=== PATIENT | female | born 1975 | race Caucasian/White ===

== ENCOUNTER → 2017-01-06 | Outpatient (CLI) | payer MEDICAID ==
--- NOTE | 2017-01-06 13:07 | MM ---
Reason for exam: screening (asymptomatic). Baseline mammogram. History: Family history of breast cancer in paternal grandmother. Physical Findings: Nurse did not find any significant physical abnormalities on exam. MG Screening Mammo w CAD Bilateral CC and MLO view(s) were taken. There are scattered fibroglandular densities. There is no discrete abnormality. No significant changes when compared with prior studies. ASSESSMENT: Negative, BI-RAD 1 RECOMMENDATION: Routine screening mammogram of both breasts in 1 year.
== END | disposition home or self-care (01) ==
LOC: RADMAMWWP 08:11
PROVIDERS: ATTEND Family Medicine
DX: Z12.31 Encounter for screening mammogram for malignant neoplasm of breast (principal)

== ENCOUNTER 2017-01-12 21:33 | Observation (INO) | payer MEDICAID ==
[2017-01-12] MEDS ORDERED: ASPIRIN 81 MG CHEW PO STA (21:53)
[2017-01-12] MEDS ORDERED: NITROGLYCERIN OINT 1 INCH/GM PACKET TOPICAL STA (21:53)
--- NOTE | 2017-01-12 21:55 | ED ---
General Adult HPI - General Chief complaint: Chest Pain Stated complaint: Chest Pain Time Seen by Provider: 01/12/17 21:35 Source: patient, RN notes reviewed Mode of arrival: ambulatory Limitations: no limitations - History of Present Illness Initial comments: This is a 41-year-old female who presents emergency Department with no significant history except for smoking and she quit 5 years ago. Patient states she does have a family history is positive for heart disease. Patient states she's been having intermittent chest pain which started a couple of months ago and she states beginning progressively worse. Patient states the pain initially was only lasting about 30 minutes and now it's lasting an hour to 2 hours. Patient states she's also short of breath the pain radiates to her back she has not experienced any diaphoresis and she's not had any nausea. Patient denies any abdominal pain patient denies any vomiting or diarrhea. Patient denies any recent fever chills or cough. Patient denies any Pain. Patient denies any leg swelling. Patient denies headache patient denies numbness weakness. Patient denies lightheadedness dizziness or syncopal episode. - Related Data Home Medications Medication Instructions Recorded Confirmed HYDROcodone/APAP 7.5-325MG [[place] 1 tab PO Q8H PRN 01/12/17 01/12/17 7.5-325] Allergies Allergy/AdvReac Type Severity Reaction Status Date / Time No Known Allergies Allergy Verified 01/12/17 21:56 Review of Systems ROS Statement: Those systems with pertinent positive or pertinent negative responses have been documented in the HPI. ROS Other: All systems not noted in ROS Statement are negative. Past Medical History Past Medical History: Asthma History of Any Multi-Drug Resistant Organisms: MRSA Date of last positivie culture/infection: breast MDRO Source:: 2010 Additional Past Surgical History / Comment(s): kidney stone removed Past Psychological History: Anxiety, Bipolar, Depression Smoking Status: Former smoker Past Alcohol Use History: None Reported Past Drug Use History: None Reported General Exam - General Exam Comments Initial Comments: GENERAL: Patient is well-developed and well-nourished. Patient is nontoxic and well- hydrated and is in mild distress. ENT: Neck is soft and supple. No significant lymphadenopathy is noted. Oropharynx is clear. Moist mucous membranes. Neck has full range of motion without eliciting any pain. EYES: The sclera were anicteric and conjunctiva were pink and moist. Extraocular movements were intact and pupils were equal round and reactive to light. Eyelids were unremarkable. PULMONARY: Unlabored respirations. Good breath sounds bilaterally. No audible rales rhonchi or wheezing was noted. CARDIOVASCULAR: There is a regular rate and rhythm without any murmurs gallops or rubs. ABDOMEN: Soft and nontender with normal bowel sounds. No palpable organomegaly was noted. There is no palpable pulsatile mass. SKIN: Skin is clear with no lesions or rashes and otherwise unremarkable. NEUROLOGIC: Patient is alert and oriented x3. Cranial nerves II through XII are grossly intact. Motor and sensory are also intact. Normal speech, volume and content. Symmetrical smile. MUSCULOSKELETAL: Normal extremities with adequate strength and full range of motion. No lower extremity swelling or edema. No calf tenderness. LYMPHATICS: No significant lymphadenopathy is noted PSYCHIATRIC: Normal psychiatric evaluation. Normal interpersonal interactions appears functionally intact in deals appropriately with others. No signs of depression. No signs of anxiety. Limitations: no limitations Course Vital Signs 01/12/17 01/12/17 01/12/17 21:35 22:08 22:41 Temperature 97.9 F Pulse Rate 92 79 95 Respiratory 18 18 18 Rate Blood Pressure 150/78 145/66 118/57 O2 Sat by Pulse 100 100 97 Oximetry Medical Decision Making - Medical Decision Making EKG shows a normal sinus rhythm at 83 bpm PA interval is on a 52 QRS is 88 QT interval 364 QTC is 427 per patient's EKG shows no ST segment elevation or depression no T-wave abnormalities are seen. I compared this EKG to an old EKG I see no significant changes Patient's chest x-ray shows no acute abnormality. Because of the patient's progressively worsening symptoms are starting the patient on heparin I wrote admitting orders and consult cardiology. - Lab Data Result diagrams: 01/12/17 22:08 01/12/17 22:08 Lab Results 01/12/17 01/12/17 01/12/17 Range/Units 22:08 22:08 22:08 WBC 8.5 (3.8-10.6) k/uL RBC 4.42 (3.80-5.40) m/uL Hgb 12.4 (11.4-16.0) gm/dL Hct 37.1 (34.0-46.0) % MCV 84.0 (80.0-100.0) fL MCH 28.1 (25.0-35.0) pg MCHC 33.5 (31.0-37.0) g/dL RDW 14.6 (11.5-15.5) % Plt Count 238 (150-450) k/uL Neutrophils % 61 % Lymphocytes % 27 % Monocytes % 6 % Eosinophils % 4 % Basophils % 0 % Neutrophils # 5.1 (1.3-7.7) k/uL Lymphocytes # 2.3 (1.0-4.8) k/uL Monocytes # 0.5 (0-1.0) k/uL Eosinophils # 0.3 (0-0.7) k/uL Basophils # 0.0 (0-0.2) k/uL PT (9.0-12.0) sec INR (<1.1) APTT (22.0-30.0) sec Sodium 137 (137-145) mmol/L Potassium 3.9 (3.5-5.1) mmol/L Chloride 103 (98-107) mmol/L Carbon Dioxide 26 (22-30) mmol/L Anion Gap 8 mmol/L BUN 9 (7-17) mg/dL Creatinine 0.58 (0.52-1.04) mg/dL Est GFR (MDRD) Af Amer >60 (>60 ml/min/1.73 sqM) Est GFR (MDRD) Non-Af >60 (>60 ml/min/1.73 sqM) Glucose 97 (74-99) mg/dL Calcium 9.0 (8.4-10.2) mg/dL Magnesium 2.1 (1.6-2.3) mg/dL Total Bilirubin 0.5 (0.2-1.3) mg/dL AST 25 (14-36) U/L ALT 46 (9-52) U/L Alkaline Phosphatase 82 (38-126) U/L Total Creatine Kinase 90 (30-135) U/L CK-MB (CK-2) 1.2 (0.0-2.4) ng/mL CK-MB (CK-2) Rel Index 1.3 Troponin I <0.012 (0.000-0.034) ng/mL Total Protein 6.9 (6.3-8.2) g/dL Albumin 3.9 (3.5-5.0) g/dL 01/12/17 Range/Units 22:08 WBC (3.8-10.6) k/uL RBC (3.80-5.40) m/uL Hgb (11.4-16.0) gm/dL Hct (34.0-46.0) % MCV (80.0-100.0) fL MCH (25.0-35.0) pg MCHC (31.0-37.0) g/dL RDW (11.5-15.5) % Plt Count (150-450) k/uL Neutrophils % % Lymphocytes % % Monocytes % % Eosinophils % % Basophils % % Neutrophils # (1.3-7.7) k/uL Lymphocytes # (1.0-4.8) k/uL Monocytes # (0-1.0) k/uL Eosinophils # (0-0.7) k/uL Basophils # (0-0.2) k/uL PT 10.2 (9.0-12.0) sec INR 1.0 (<1.1) APTT 25.6 (22.0-30.0) sec Sodium (137-145) mmol/L Potassium (3.5-5.1) mmol/L Chloride (98-107) mmol/L Carbon Dioxide (22-30) mmol/L Anion Gap mmol/L BUN (7-17) mg/dL Creatinine (0.52-1.04) mg/dL Est GFR (MDRD) Af Amer (>60 ml/min/1.73 sqM) Est GFR (MDRD) Non-Af (>60 ml/min/1.73 sqM) Glucose (74-99) mg/dL Calcium (8.4-10.2) mg/dL Magnesium (1.6-2.3) mg/dL Total Bilirubin (0.2-1.3) mg/dL AST (14-36) U/L ALT (9-52) U/L Alkaline Phosphatase (38-126) U/L Total Creatine Kinase (30-135) U/L CK-MB (CK-2) (0.0-2.4) ng/mL CK-MB (CK-2) Rel Index Troponin I (0.000-0.034) ng/mL Total Protein (6.3-8.2) g/dL Albumin (3.5-5.0) g/dL Disposition Clinical Impression: Unstable angina pectoris Disposition: ADMITTED IP TO THIS HOSP Time of Disposition: 23:23
[2017-01-12 22:25] LABS: ALT 46 U/L (9-52); AST 25 U/L (14-36); Alkaline Phosphatase 82 U/L (38-126); Anion Gap 8 mmol/L; Blood Urea Nitrogen 9 mg/dL (7-17); Carbon Dioxide 26 mmol/L (22-30); Chloride 103 mmol/L (98-107); Glucose 97 mg/dL (74-99); Magnesium 2.1 mg/dL (1.6-2.3); Non-African American GFR(MDRD) >60 (>60 ml/min/1.73 sqM); Potassium 3.9 mmol/L (3.5-5.1); Sodium 137 mmol/L (137-145); Total Bilirubin 0.5 mg/dL (0.2-1.3); Total Protein 6.9 g/dL (6.3-8.2)
[2017-01-12 22:28] LABS: Partial Thromboplastin Time 25.6 sec (22.0-30.0); Prothrombin Time 10.2 sec (9.0-12.0)
[2017-01-12 22:39] LABS: Creatine Kinase 90 U/L (30-135)
--- NOTE | 2017-01-12 22:39 | XR ---
EXAMINATION TYPE: XR chest 2V DATE OF EXAM: 01/12/2017 10:22 PM COMPARISON: 08/28/2015 HISTORY: Chest pain TECHNIQUE: Frontal and lateral views of the chest are obtained. FINDINGS: Heart and mediastinum are normal. Lungs are clear. Diaphragm is normal. Bony thorax is int act. IMPRESSION: Normal chest. No change.
[2017-01-12 22:53] LABS: Creatine Kinase MB 1.2 ng/mL (0.0-2.4); Troponin I <0.012 ng/mL (0.000-0.034)
[2017-01-12 23:02] LABS: Basophils % (A) 0 %; CHCM 34.7; Eosinophils # (A) 0.3 k/uL (0-0.7); Eosinophils % (A) 4 %; HCT 37.1 % (34.0-46.0); HDW 3.26; HGB 12.4 gm/dL (11.4-16.0); Luc # (Auto) 0.25; Luc % (Auto) 3; Lymphocytes # (A) 2.3 k/uL (1.0-4.8); Lymphocytes % (A) 27 %; MCH 28.1 pg (25.0-35.0); MCHC 33.5 g/dL (31.0-37.0); Mean Platelet Volume 6.3; Monocytes # (A) 0.5 k/uL (0-1.0); Monocytes % (A) 6 %; Neutrophils # (A) 5.1 k/uL (1.3-7.7); Neutrophils % (A) 61 %; RBC 4.42 m/uL (3.80-5.40); RDW 14.6 % (11.5-15.5); WBC 8.5 k/uL (3.8-10.6); WBC (Perox) 8.22
[2017-01-13 00:12] VITALS: BMI 42.9
[2017-01-13 03:53] LABS: Cholesterol 159 mg/dL (<200); HDL Cholesterol 38 mg/dL (40-60); Triglycerides 222 mg/dL (<150)
[2017-01-13 04:03] LABS: Creatine Kinase 62 U/L (30-135)
[2017-01-13 04:15] LABS: Creatine Kinase MB 0.8 ng/mL (0.0-2.4); Troponin I <0.012 ng/mL (0.000-0.034)
[2017-01-13] MEDS: NITROGLYCERIN OINT 1 INCH/GM PACKET TOPICAL SCH ×3 (05:54→13:00)
[2017-01-13] MEDS: NITROGLYCERIN SL TABS 0.4 MG TAB SUBLINGUAL PRN ×3 (07:10→07:22)
[2017-01-13] MEDS ORDERED: HYDROcodone/APAP 7.5-325MG 1 EACH TAB PO PRN (07:50)
--- NOTE | 2017-01-13 08:21 | P.CRDCN ---
History of Present Illness Consult date: 01/13/17 Reason for Consult (text): Chest pain Chief complaint: Chest pain History of present illness: Is a pleasant 41-year-old female with a known history of asthma. She is an ex-smoker, quit 5 years ago. She denies history of hypertension, hyperlipidemia or diabetes. Family history significant for multiple MIs and her mother during her late 50s. She presented to the emergency department with complaints of chest pain, mid to right sided that radiates to her back. Associated symptoms included shortness of breath. She says these episodes started about a month ago and are becoming more frequent. Originally began at rest and worsened with activity. The pain increases with inspiration as well as palpation. She's had no dizziness, lightheadedness, syncope, nausea or vomiting. She denies complaints of palpitations or edema. Has no orthopnea or PND. EKG on admission showed normal sinus rhythm without any acute ST-T wave changes. Laboratory values showed troponin less than 0.0122. BUN and creatinine are normal. Triglycerides 222 and HDL of 38. Patient continues to have intermittent chest discomfort, not relieved by nitro. EKG continues to show no ST-T wave changes. Past Medical History Past Medical History: Asthma History of Any Multi-Drug Resistant Organisms: MRSA Date of last positivie culture/infection: breast MDRO Source:: 2009 Additional Past Surgical History / Comment(s): kidney stone removed Past Psychological History: Anxiety, Bipolar, Depression Smoking Status: Former smoker Past Alcohol Use History: None Reported Past Drug Use History: None Reported - Past Family History Mother Family Medical History: Diabetes Mellitus, Myocardial Infarction ([place]) Additional Family Medical History / Comment(s): [place] x 4 Medications and Allergies Home Medications Medication Instructions Recorded Confirmed Type HYDROcodone/APAP 7.5-325MG [[place] 1 tab PO Q8H PRN 01/12/17 01/12/17 History 7.5-325] Allergies Allergy/AdvReac Type Severity Reaction Status Date / Time No Known Allergies Allergy Verified 01/12/17 21:56 Physical Exam Vitals: Vital Signs Temp Pulse Resp BP BP Pulse Ox 01/13/17 07:40 97.6 F 97 18 126/63 95 01/13/17 04:00 97.6 F 86 16 110/50 95 01/12/17 23:40 97.7 F 89 16 130/69 95 Intake and Output 01/12/17 01/13/17 01/13/17 22:59 06:59 14:59 Intake Total 10 Balance 10 Intake: IV 10 0.9% NS FLUSH 10 mL 10 Other: Weight 113.4 kg PHYSICAL EXAMINATION: HEENT: Head is atraumatic, normocephalic. Pupils equal, round. Neck is supple. There is no elevated jugular venous pressure. HEART EXAMINATION: Heart sounds regular, S1 and S2 normal. No murmur or gallop heard. CHEST EXAMINATION: Lungs are clear to auscultation and precussion. No chest wall tenderness is noted on palpation or with deep breathing. ABDOMEN: Soft, obese, nontender. Bowel sounds are heard. No organomegaly noted. EXTREMITIES: 2+ peripheral pulses with no evidence of peripheral edema and no calf tenderness noted. NEUROLOGIC patient is awake, alert and oriented x3. . Results 01/12/17 22:08 01/12/17 22:08 Cardiac Enzymes 01/13/17 Range/Units 03:13 CK-MB (CK-2) 0.8 (0.0-2.4) ng/mL Troponin I <0.012 (0.000-0.034) ng/mL Lipids 01/13/17 Range/Units 03:13 Triglycerides 222 H (<150) mg/dL Cholesterol 159 (<200) mg/dL HDL Cholesterol 38 L (40-60) mg/dL Current Medications Generic Name Dose Route Start Last Admin Trade Name Freq PRN Reason Stop Dose Admin Hydrocodone Bitart/Acetaminophen 1 each 01/13/17 07:50 [place] 7.5-325 PO Q8H PRN Pain Aspirin 325 mg 01/13/17 09:00 Aspirin PO DAILY ANI Nitroglycerin 1 inch 01/13/17 06:00 Nitro-Bid Oint TOPICAL Q6HR ANI Nitroglycerin 0.4 mg 01/12/17 23:24 01/13/17 07:22 Nitrostat SUBLINGUAL 0.4 mg Q5M PRN Administration Chest Pain Intake and Output 01/12/17 01/13/17 01/13/17 22:59 06:59 14:59 Intake Total 10 Balance 10 Intake: IV 10 0.9% NS FLUSH 10 mL 10 Other: Weight 113.4 kg EKG Interpretations (text) Normal sinus rhythm without acute ST-T wave changes Assessment and Plan Plan: Assessment and plan #1 chest pain, atypical #2 obesity #3 asthma #4 ex-smoker From cardiology perspective, we will obtain 2-D echo. We will await the third troponin level. We will order a dobutamine stress echo.. Further recommendations to follow. AUTHOR AGENT note has been reviewed, I agree with a documented findings and plan of care. Patient was seen and examined.
[2017-01-13] MEDS ORDERED: ASPIRIN 325 MG TAB PO SCH (09:00)
--- NOTE | 2017-01-13 09:32 | ECHOF ---
Referral Reason:chest pain MEASUREMENTS -------- HEIGHT: 162.6 cm WEIGHT: 113.4 kg BP: 126/63 RVIDd: 3.3 cm (< 3.3) IVSd: 1.1 cm (0.6 - 1.1) LVIDd: 3.9 cm (3.9 - 5.3) LVPWd: 1.2 cm (0.6 - 1.1) IVSs: 1.9 cm LVIDs: 2.6 cm LVPWs: 1.8 cm LA Diam: 3.4 cm (2.7 - 3.8) LAESV Index (A-L): 23.36 ml/m Ao Diam: 2.7 cm (2.0 - 3.7) AV Cusp: 1.7 cm (1.5 - 2.6) LA Diam: 3.4 cm (2.7 - 3.8) MV EXCURSION: 19.783 mm (> 18.000) MV EF SLOPE: 121 mm/s (70 - 150) EPSS: 0.2 cm MV E Marcus: 1.03 m/s MV DecT: 143 ms MV A Marcus: 0.72 m/s MV E/A Ratio: 1.44 RAP: 5.00 mmHg RVSP: 24.48 mmHg FINDINGS -------- Sinus rhythm. This was a technically adequate study. There is borderline concentric left ventricular hypertrophy. Overall left ventricular systolic function is low-normal with, an EF between 50 - 55 %. Basal inferoseptal LV wall motion is hypokinetic. The right ventricle is mildly enlarged. Normal LA size by volume 22+/-6 ml/m2. The right atrium is normal in size. 1.5mg of Definity was utilized for enhancement of images The aortic valve is trileaflet and appears structurally normal. Mild mitral annular calcification present. There is trace mitral regurgitation. Trace tricuspid regurgitation present. Right ventricular systolic pressure is normal at < 35 mmHg. Trace/mild (physiologic) pulmonic regurgitation. The aortic root size is normal. IVC Not well visulized. There is no pericardial effusion. CONCLUSIONS -------- 1. Sinus rhythm. 2. The aortic valve is trileaflet and appears structurally normal. 3. Mild mitral annular calcification present. 4. There is trace mitral regurgitation. 5. Trace tricuspid regurgitation present. 6. Right ventricular systolic pressure is normal at < 35 mmHg. 7. Trace/mild (physiologic) pulmonic regurgitation. 8. The aortic root size is normal. 9. IVC Not well visulized. 10. There is no pericardial effusion. 11. This was a technically adequate study. 12. There is borderline concentric left ventricular hypertrophy. 13. Overall left ventricular systolic function is low-normal with, an EF between 50 - 55 %. 14. Basal inferoseptal LV wall motion is hypokinetic. 15. The right ventricle is mildly enlarged. 16. Normal LA size by volume 22+/-6 ml/m2. 17. The right atrium is normal in size. 18. 1.5mg of Definity was utilized for enhancement of images TRAUMA PROGRAM MANAGER: Glenn Durham RDCS
[2017-01-13] MEDS ORDERED: DOBUTamine DRIP for NUC MED 500 MG in DEXTROSE/WATER 1 250ML.BAG IV ONE (09:44)
[2017-01-13 10:21] LABS: Creatine Kinase 57 U/L (30-135)
[2017-01-13 10:33] LABS: Creatine Kinase MB 0.7 ng/mL (0.0-2.4); Troponin I <0.012 ng/mL (0.000-0.034)
[2017-01-13 11:40] VITALS: BP 120/68; PULSE 95; RESP 18; TEMP 98
--- NOTE | 2017-01-13 11:41 | ECHOS ---
DATE OF SERVICE: 01/13/2017 AGE: 41Y SEX: F HT: 64 WT: 250 lbs. Protocol Rei: Others: Dobutamine Stress Echo Stage: Dur. of Exercise: *Heart Rate Blood Pressure *Rest: 56 Rest: 121/70 * *Max. Achieved: 153 Maximum BP: 199/54 85% PMHR: 151 100% PMHR: 178 *METS: INDICATIONS: Chest pain. MEDICATIONS: Baseline EKG shows sinus rhythm, normal axis, normal intervals. Patient was given intravenous dobutamine over a period of 8 minutes as per protocol. Did not have chest pain or diagnostic ST segment depression. Patient attained 86% of predicted maximum heart rate. Baseline echo shows normal left ventricular size, wall motion and systolic function. Post dobutamine infusion, there is normal hyperdynamic response of all segments of myocardium noted. CONCLUSION: 1. Negative stress test by EKG criteria. 2. Negative dobutamine echo.
--- NOTE | 2017-01-13 19:31 | HP ---
DATE OF ADMISSION: 01/12/2017 PRESENTING COMPLAINT: Chest pain. HISTORY OF PRESENTING COMPLAINT: This is a pleasant 41-year-old patient of Dr. Martin whose chronic stable conditions include asthma and bipolar disorder. The patient for a month was about right-sided chest fracture. Not really related to exertion, can be at rest. No radiation into ( ) sometimes shortness of breath, no dizziness, no lightheadedness, no perspiration. Decided to come in for the same to rule out cardiac cause. Patient has no prior cardiac history. REVIEW OF SYSTEMS: CONSTITUTIONAL: None. HEENT: None. RESPIRATORY: As above. CARDIOVASCULAR: Left precordial pain. GASTROINTESTINAL: None. GENITOURINARY: None. MUSCULOSKELETAL: None. Dermatological: None. HEMATOLOGICAL: None. LYMPHATIC: None. PSYCHIATRY: None. NEUROLOGICAL: None. Past medical history of asthma and bipolar disorder. PAST SURGICAL HISTORY: Kidney stone removal. SOCIAL HISTORY: The patient lives with a girlfriend. The patient smoked about 17 years; stopped in 2010. No alcohol. Works as an aide at [employer]. FAMILY HISTORY: Family history of myocardial infarction, diabetes. HOME MEDICATIONS: [place] 7.5 1 tablets q.8 p.r.n. ALLERGIES: None. On examination temperature 98, pulse ox 95, respiratory rate 18, blood pressure 120/68, pulse ox 97% on room air. GENERAL APPEARANCE: Well built, BMI of 42.9, lying in bed, not in distress. EYES: Pupils equal, conjunctivae normal. HEENT: External appearance of nose and ears normal. Oral cavity normal. NECK: JVD not raised. Mass not palpable. RESPIRATORY: Effort normal. LUNGS: Fair air entry. CARDIOVASCULAR: First and second sounds normal. No edema. ABDOMEN: Soft, nontender. Liver and spleen not palpable. LYMPHATIC: No lymph nodes palpable in the neck or axillae. PSYCHIATRY: Alert and oriented x3. Mood is normal. NEUROLOGICAL: Pupils equal. Cranial nerves grossly intact. Power and sensation grossly intact. MUSCULOSKELETAL: Reproducible pain at the right costochondral junction. INVESTIGATIONS: White count 8.5, hemoglobin 12.4. Potassium 3.9 and LDL is 77. EKG normal sinus rhythm. ASSESSMENT: 1. Right-sided chest pain, likely acute costochondritis rule out a cardiac cause, given a positive family history. 2. Mild intermittent asthma, stable. 3. Bipolar disorder, takes Cymbalta at home. 4. Morbid obesity body mass index 42.9. PLAN: Cardiology was consulted who ordered a stress test. Patient was put on aspirin. The patient should see a dietitian to lose weight. If stress test negative, we will start the patient on naproxen.
--- NOTE | 2017-01-14 19:47 | DS ---
DATE OF ADMISSION: 01/12/2017 DATE OF DISCHARGE: 01/13/2017 FINAL DIAGNOSES: 1. Chest pain, likely acute costochondritis. 2. Mild intermittent asthma, stable. 3. Bipolar disorder, stable. 4. Morbid obesity, BMI 42.9. HOSPITAL COURSE: This patient with morbid obesity presented with right-sided chest pain, reproducible at the costochondral junction. Considerable a cardiac cause. Dobutamine stress echocardiogram was ordered that came back to negative. Discharge planning was discussed in detail with the patient and patient's partner. On examination, right chest wall reproducible pain. DISCHARGE MEDICATIONS: 1. Jbph[place] 7.5 1 tablets q.8 p.r.n. 2. Naproxen 250 mg p.o. b.i.d. Follow up with Dr. Martin in one week, follow-up with Dr. Porter Garcia in 2 weeks. CONSULTATION: Dr. Oviedo from cardiology.
== END 2017-01-13 16:55 | disposition home or self-care (01) ==
LOC: EC 21:33 → 6SEL 23:22
PROVIDERS: ADMIT Hospitalist; ATTEND Hospitalist
DX: R07.89 Other chest pain (principal); J45.20 Mild intermittent asthma, uncomplicated; F31.9 Bipolar disorder, unspecified; E66.01 Morbid (severe) obesity due to excess calories; Z68.41 Body mass index [BMI] 40.0-44.9, adult; Z87.891 Personal history of nicotine dependence; Z82.49 Family history of ischemic heart disease and other diseases of the circulatory system
CPT/HCPCS: 36415; 93005; 93350; 93017; 93306; 85379; 80061; 80053; 82550 ×2; 82553 ×2; 83735; 84484 ×2; 85025; 85610; 85730; 71020; 99285; G0378 ×2; J1250; Q9957

== ENCOUNTER 2017-02-19 14:10 | Emergency (ER) | payer MEDICAID ==
[2017-02-19] MEDS ORDERED: IBUPROFEN 600 MG TAB PO STA (14:44)
[2017-02-19] MEDS ORDERED: ACETAMINOPHEN TAB 500 MG TAB PO STA (14:44)
--- NOTE | 2017-02-19 14:45 | ED ---
Lower Extremity Injury HPI - General Chief Complaint: Extremity Injury, Lower Stated Complaint: rt knee and leg pain Time Seen by Provider: 02/19/17 14:39 Source: patient, RN notes reviewed Mode of arrival: ambulatory Limitations: no limitations - History of Present Illness Initial Comments: 41-year-old female presents emergency Department chief complaint right leg and swelling. Patient states started a few days ago. She said increased swelling, right calf pain. She states all started when she stood up from a seated position felt a pop in her knee, leg region. She states that she is concerned about possible clot to swelling. She denies any chest pain or shortness breath. Denies any history of DVT. Patient states she is minimal discomfort to her knee and she had no traumatic injury no fall. Patient denies any paresthesias. Patient offers no other complaints. - Related Data Home Medications Medication Instructions Recorded Confirmed HYDROcodone/APAP 7.5-325MG [[place] 1 tab PO Q8H PRN 01/12/17 02/19/17 7.5-325] Acetaminophen Tab [Tylenol Tab] 650 mg PO Q6H PRN 02/19/17 02/19/17 Ibuprofen [Motrin] 600 - 800 mg PO Q6H PRN 02/19/17 02/19/17 Previous Rx's Medication Instructions Recorded Hydrocodone/Acetaminophen [[place] 1 tab PO Q6HR PRN #15 tab 02/19/17 5-325] Allergies Allergy/AdvReac Type Severity Reaction Status Date / Time No Known Allergies Allergy Verified 02/19/17 14:47 Review of Systems ROS Statement: Those systems with pertinent positive or pertinent negative responses have been documented in the HPI. ROS Other: All systems not noted in ROS Statement are negative. Past Medical History Past Medical History: Asthma History of Any Multi-Drug Resistant Organisms: MRSA Date of last positivie culture/infection: breast MDRO Source:: 2009 Additional Past Surgical History / Comment(s): kidney stone removed Past Psychological History: Anxiety, Bipolar, Depression Smoking Status: Former smoker Past Alcohol Use History: None Reported Past Drug Use History: None Reported - Past Family History Mother Family Medical History: Diabetes Mellitus, Myocardial Infarction ([place]) Additional Family Medical History / Comment(s): [place] x 4 General Exam Limitations: no limitations General appearance: alert, in no apparent distress Respiratory exam: Present: normal lung sounds bilaterally. Absent: respiratory distress, wheezes, rales, rhonchi, stridor Cardiovascular Exam: Present: regular rate, normal rhythm, normal heart sounds. Absent: systolic murmur, diastolic murmur, rubs, gallop, clicks Extremities exam: Present: other (Right labia sinus the right calf, there is moderate edema noted neurovascular intact there is some redness to the skin over the swelling region, patient has full range of motion right knee right ankle neurovascular intact of her right leg) Course Vital Signs 02/19/17 14:20 Temperature 98.2 F Pulse Rate 91 Respiratory 18 Rate Blood Pressure 134/76 O2 Sat by Pulse 96 Oximetry Medical Decision Making - Medical Decision Making 41-year-old male presented for right leg pain, swelling. Patient has a right knee sprain, lower extremity swelling. There is no evidence DVT. Patient has "collections consistent with joint effusion. Patient will be follow-up with orthopedics. Patient be discharged with pain medication return parameters were discussed. We discussed compression stockings, elevating and icing. Disposition Clinical Impression: Leg edema, right, Right knee sprain Disposition: HOME SELF-CARE Condition: Stable Instructions: Knee Sprain (ED) Additional Instructions: Please rest, ice and elevate. Take medications as prescribed. Follow-up with orthopedics as directed.Please return to the Emergency Department if symptoms worsen or any other concerns. Prescriptions: Hydrocodone/Acetaminophen [[place] 5-325] 1 tab PO Q6HR PRN #15 tab PRN Reason: Pain Referrals: Demetrio Martin MD [Primary Care Provider] - 1-2 days Francisco Silva MD [STAFF PHYSICIAN] - 1-2 days Time of Disposition: 16:23
--- NOTE | 2017-02-19 15:30 | US ---
EXAMINATION TYPE: US venous doppler duplex LE RT DATE OF EXAM: 02/19/2017 3:14 PM COMPARISON: NONE CLINICAL HISTORY: Pain. EC patient with right knee/calf pain and swelling x 1 week. Patient states aw akened from sleep with symptoms. SIDE PERFORMED: Right TECHNIQUE: The lower extremity deep venous system is examined utilizing real time linear array sonog anne with graded compression, Doppler sonography and color-flow sonography. VESSELS IMAGED: Common Femoral Vein Deep Femoral Vein Greater Saphenous Vein * Femoral Vein Popliteal Vein Small Saphenous Vein * Proximal Calf Veins (* superficial vessels) Right Leg: Negative for DVT. Fluid areas are noted at superior/ anterior right knee = 3.7x 0.7 x 0.4 cm and at medial/inferior right knee = 2.5 x 1.9 x 0.6cm. IMPRESSION: No evidence of deep venous thrombosis. Knee joint effusion is noted.
--- NOTE | 2017-02-19 16:19 | XR ---
EXAMINATION TYPE: XR knee complete RT DATE OF EXAM: 02/19/2017 3:58 PM COMPARISON: NONE HISTORY: Knee pain TECHNIQUE: 3 views FINDINGS: I see no fracture nor dislocation. Joint spaces are normal. There is no sign of knee joint effusion. IMPRESSION: Negative right knee exam.
[2017-02-19 17:00] VITALS: BP 131/58; PULSE 68; RESP 20; TEMP 98.3
== END 2017-02-19 16:40 | disposition home or self-care (01) ==
LOC: EC 14:10
DX: S83.91XA Sprain of unspecified site of right knee, initial encounter (principal); R60.9 Edema, unspecified; Z87.891 Personal history of nicotine dependence; X50.9XXA Other and unspecified overexertion or strenuous movements or postures, initial encounter
CPT/HCPCS: 99284

== ENCOUNTER → 2017-03-01 | Outpatient (CLI) | payer MEDICAID ==
--- NOTE | 2017-03-02 07:45 | MR ---
EXAMINATION TYPE: MR knee RT wo con DATE OF EXAM: 03/01/2017 10:33 PM COMPARISON: Right knee x-ray February 19, 2017 HISTORY: Rt knee pain, effusion, and medial meniscal tear per order. Pain and swelling for couple wee ks per patient. TECHNIQUE: Multiplanar, multisequence images of the knee is performed without IV contrast. FINDINGS: MEDIAL MENISCUS: Anterior horn is intact without tear. Oblique increased signal posterior horn of med ial meniscus appears to extends to inferior articular surface on sagittal image 7. Prominent adjacent cystic change is seen on coronal images causing medial bulging of medial collateral ligament LATERAL MENISCUS: Anterior and posterior horns are intact without tear. CRUCIATE LIGAMENTS: The anterior and posterior cruciate ligaments are intact and unremarkable. COLLATERAL LIGAMENTS: The medial collateral ligament and lateral collateral ligament complex are inta ct. Cystic change is present at level of medial collateral ligament deep aspect. Moderate surrounding fluid is seen particularly inferiorly EXTENSOR MECHANISM: Visualized quadriceps and patellar tendons are intact. EFFUSION: There is small suprapatellar joint effusion. POPLITEAL CYST: No popliteal/lozoya cyst. TRICOMPARTMENT SPACES: There is no significant joint space loss and spurring. CARTILAGE: Tricompartment articular cartilage is maintained. No significant compromise patella is pre sent. BONE MARROW SIGNAL: Heterogeneity of bone marrow signal intensity consistent with red marrow reconver kunal is seen. OTHER: Increased fluid signal in the infrapatellar subcutaneous tissue is present. IMPRESSION: 1. Full-thickness oblique tear posterior horn of medial meniscus with adjacent parameniscal cyst form ation. 2. Mild MCL sprain injury.
== END ==
LOC: RADMRIMAIN 21:35
PROVIDERS: ATTEND Orthopaedic Surgery Sports Medicine
DX: S83.241A Other tear of medial meniscus, current injury, right knee, initial encounter (principal); S83.411A Sprain of medial collateral ligament of right knee, initial encounter

== ENCOUNTER → 2018-04-09 | Outpatient (CLI) | payer MEDICAID ==
--- NOTE | 2018-04-10 13:12 | MM ---
Reason for exam: screening (asymptomatic). Last mammogram was performed 1 year and 3 months ago. History: Family history of breast cancer in paternal grandmother. Physical Findings: A clinical breast exam by your physician is recommended on an annual basis and results should be correlated with mammographic findings. MG Screening Mammo w CAD Bilateral CC and MLO view(s) were taken. Prior study comparison: January 06, 2017, bilateral MG screening mammo w CAD. There are scattered fibroglandular densities. No significant changes when compared with prior studies. ASSESSMENT: Negative, BI-RAD 1 RECOMMENDATION: Routine screening mammogram of both breasts in 1 year.
== END | disposition home or self-care (01) ==
LOC: RADMAMWWP 10:12
PROVIDERS: ATTEND Family Medicine
DX: Z12.31 Encounter for screening mammogram for malignant neoplasm of breast (principal)
CPT/HCPCS: 77067

== ENCOUNTER 2018-11-03 15:33 | Emergency (ER) | payer MEDICAID, OTHER ==
[2018-11-03 15:41] VITALS: BP 132/81; PULSE 96; RESP 20; TEMP 98.3
[2018-11-03] MEDS ORDERED: KETOROLAC 60 MG/2 ML VIAL IM STA (16:23)
[2018-11-03] MEDS ORDERED: SODIUM CHLORIDE 0.9% 1,000 ML IV STA (16:27)
[2018-11-03 16:56] LABS: Basophils % (A) 0 %; Eosinophils # (A) 0.3 k/uL (0-0.7); Eosinophils % (A) 3 %; HCT 39.9 % (34.0-46.0); HGB 13.3 gm/dL (11.4-16.0); Lymphocytes # (A) 1.8 k/uL (1.0-4.8); Lymphocytes % (A) 22 %; MCH 27.6 pg (25.0-35.0); MCHC 33.5 g/dL (31.0-37.0); MCV 82.4 fL (80.0-100.0); Mean Platelet Volume 6.4; Monocytes # (A) 0.5 k/uL (0-1.0); Monocytes % (A) 6 %; Neutrophils # (A) 5.6 k/uL (1.3-7.7); Neutrophils % (A) 68 %; Platelet Count 233 k/uL (150-450); RBC 4.84 m/uL (3.80-5.40); RDW 14.3 % (11.5-15.5); WBC 8.3 k/uL (3.8-10.6)
[2018-11-03 16:59] LABS: Appearance,Urine Cloudy (Clear); Bacteria,Urine Few /hpf; Bilirubin,Urine Negative (Negative); Blood,Urine Negative (Negative); Color,Urine Yellow; Glucose,Urine (UA) Negative (Negative); Ketones,Urine Negative (Negative); Leukocyte Esterase,Urine Negative (Negative); Mucus,Urine Occasional /hpf; Nitrite,Urine Negative (Negative); Protein,Urine Negative (Negative); Specific Gravity,Urine 1.024 (1.001-1.035); Squamous Epithelial Cell,Urine 4 /hpf (0-4); Urobilinogen,Urine <2.0 mg/dL (<2.0)
[2018-11-03 17:07] LABS: ALT 26 U/L (9-52); AST 19 U/L (14-36); Albumin 4.2 g/dL (3.5-5.0); Alkaline Phosphatase 91 U/L (38-126); Anion Gap 8 mmol/L; Blood Urea Nitrogen 10 mg/dL (7-17); Calcium 9.3 mg/dL (8.4-10.2); Carbon Dioxide 26 mmol/L (22-30); Chloride 108 mmol/L (98-107); Glucose 111 mg/dL (74-99); Sodium 142 mmol/L (137-145); Total Bilirubin 0.3 mg/dL (0.2-1.3); Total Protein 7.4 g/dL (6.3-8.2)
--- NOTE | 2018-11-03 17:29 | ED ---
Abdominal Pain HPI - General Chief Complaint: Abdominal Pain Stated Complaint: Abd pain Source: patient, RN notes reviewed, old records reviewed Mode of arrival: ambulatory Limitations: no limitations - History of Present Illness Initial Comments: 43-year-old female patient past medical history of kidney stone presents to ED with epigastric abdominal pain. 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 Patient states that since then she has had mild to moderate pain in her periumbilical and epigastric region. Patient presented to ED directly after injury. Patient describes the pain as a stabbing pain. Patient not taking anything for these symptoms. Patient denies any other associated symptoms including nausea vomiting diarrhea, fever chills, chest pain, shortness of breath, dysuria. Patient denies any other injury sustained. Patient denies back pain, patient is ambulatory without difficulty. Pt states that she cannot be because her partner is a woman. Systemic: Pt denies fatigue, myalgia, fever/chills, rash. Pt denies weakness, night sweats, weight loss. Neuro: Pt denies headache, visual disturbances, syncope or pre-syncope. HEENT: Pt denies ocular discharge or irritation, otalgia, rhinorrhea, pharyngitis or notable lymphadenopathy. Cardiopulmonary: Pt denies chest pain, SOB, heart palpitations, dyspnea on exertion. Abdominal/GI: Pt denies n/v/d. : Pt denies dysuria, burning w/ urination, frequency/urgency. Denies new onset urinary or bowel incontinence. MSK: Pt denies myalgia, loss of strength or function in extremities. Neuro: Pt denies new onset weakness, paresthesias. - Related Data Home Medications Medication Instructions Recorded Confirmed HYDROcodone/APAP 7.5-325MG [[place] 1 tab PO Q8H PRN 01/12/17 11/03/18 7.5-325] QUEtiapine [SEROquel] 50 mg PO HS 11/03/18 11/03/18 Previous Rx's Medication Instructions Recorded Ibuprofen [Motrin] 600 mg PO Q6HR PRN #40 day 11/03/18 Allergies Allergy/AdvReac Type Severity Reaction Status Date / Time No Known Allergies Allergy Verified 11/03/18 15:51 Review of Systems ROS Statement: Those systems with pertinent positive or pertinent negative responses have been documented in the HPI. ROS Other: All systems not noted in ROS Statement are negative. Past Medical History Past Medical History: Asthma Additional Past Medical History / Comment(s): kidney stones History of Any Multi-Drug Resistant Organisms: MRSA Date of last positivie culture/infection: breast MDRO Source:: 2009 Additional Past Surgical History / Comment(s): kidney stone removed Past Psychological History: Anxiety, Bipolar, Depression Smoking Status: Former smoker Past Alcohol Use History: None Reported Past Drug Use History: None Reported - Past Family History Mother Family Medical History: Diabetes Mellitus, Myocardial Infarction ([place]) Additional Family Medical History / Comment(s): [place] x 4 General Exam - General Exam Comments Initial Comments: Constitutional: NAD, AOX3, Pt has pleasant affect. HEENT: NC/AT, trachea midline, neck supple, no lymphadenopathy. Posterior pharynx non erythematous, without exudates. External ears appear normal, without discharge. Mucous membranes moist. Eyes PERRLA, EOM intact. There is no scleral icterus. No pallor noted. Cardiopulmonary: RRR, no murmurs, rubs or gallops, no JVD noted. Lungs CTAB in anterior and posterior singh. No peripheral edema. Abdominal exam: Abdomen soft and non-distended. Abdomen mildly tender to palpation and periumbilical, epigastric region. No masses, no ecchymoses. No guarding or rigidity. Bowel sounds active in LLQ. No hepatosplenomegaly. Neuro: CN II-XII grossly intact. No nuchal rigidity. MSK: No posterior calf tenderness bilaterally, homans sign negative bilaterally. Posterior tibialis and radial pulse +2 bilaterally. Sensation intact in upper and lower extremities. Full active ROM in upper and lower extremities, 5/5 stregnth. No cervical, thoracic, lumbar tenderness. Limitations: no limitations Course Vital Signs 11/03/18 15:39 Temperature 98.3 F Pulse Rate 96 Respiratory 20 Rate Blood Pressure 132/81 O2 Sat by Pulse 98 Oximetry Medical Decision Making - Medical Decision Making 43-year-old female patient past medical history of kidney stone presents to ED with epigastric abdominal pain. 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 Patient states that since then she has had mild to moderate pain in her periumbilical and epigastric region. Patient presented to ED directly after injury. Patient describes the pain as a stabbing pain. Physical exam displayed mild tenderness periumbilical, epigastric. No guarding or rigidity, no masses, no ecchymoses. Laboratory investigations CBC, CMP, UA were not impressive. CT abdomen and pelvis with contrast displayed numerous bilateral ovarian cyst, no acute pathology. Patient diagnosed with muscular skeletal abdominal injury. Patient states that her pain has improved. Patient to take ibuprofen/Tylenol as needed for pain. Patient may return to work tomorrow as tolerated. [facility] form filled out. Patient to follow up with PCP in 1-2 days. Patient to return to ED if new signs symptoms develop or condition worsens. Case discussed with Dr. Queen. - Lab Data Result diagrams: 11/03/18 16:40 11/03/18 16:40 Lab Results 11/03/18 11/03/18 11/03/18 Range/Units 16:40 16:40 16:40 WBC 8.3 (3.8-10.6) k/uL RBC 4.84 (3.80-5.40) m/uL Hgb 13.3 (11.4-16.0) gm/dL Hct 39.9 (34.0-46.0) % MCV 82.4 (80.0-100.0) fL MCH 27.6 (25.0-35.0) pg MCHC 33.5 (31.0-37.0) g/dL RDW 14.3 (11.5-15.5) % Plt Count 233 (150-450) k/uL Neutrophils % 68 % Lymphocytes % 22 % Monocytes % 6 % Eosinophils % 3 % Basophils % 0 % Neutrophils # 5.6 (1.3-7.7) k/uL Lymphocytes # 1.8 (1.0-4.8) k/uL Monocytes # 0.5 (0-1.0) k/uL Eosinophils # 0.3 (0-0.7) k/uL Basophils # 0.0 (0-0.2) k/uL Sodium 142 (137-145) mmol/L Potassium 4.0 (3.5-5.1) mmol/L Chloride 108 H (98-107) mmol/L Carbon Dioxide 26 (22-30) mmol/L Anion Gap 8 mmol/L BUN 10 (7-17) mg/dL Creatinine 0.57 (0.52-1.04) mg/dL Est GFR (CKD-EPI)AfAm >90 (>60 ml/min/1.73 sqM) Est GFR (CKD-EPI)NonAf >90 (>60 ml/min/1.73 sqM) Glucose 111 H (74-99) mg/dL Calcium 9.3 (8.4-10.2) mg/dL Total Bilirubin 0.3 (0.2-1.3) mg/dL AST 19 (14-36) U/L ALT 26 (9-52) U/L Alkaline Phosphatase 91 (38-126) U/L Total Protein 7.4 (6.3-8.2) g/dL Albumin 4.2 (3.5-5.0) g/dL Urine Color Yellow Urine Appearance Cloudy H (Clear) Urine pH 6.0 (5.0-8.0) Ur Specific [place] 1.024 (1.001-1.035) Urine Protein Negative (Negative) Urine Glucose (UA) Negative (Negative) Urine Ketones Negative (Negative) Urine Blood Negative (Negative) Urine Nitrite Negative (Negative) Urine Bilirubin Negative (Negative) Urine Urobilinogen <2.0 (<2.0) mg/dL Ur Leukocyte Esterase Negative (Negative) Urine WBC 1 (0-5) /hpf Ur Squamous Epith Cells 4 (0-4) /hpf Urine Bacteria Few H (None) /hpf Urine Mucus Occasional H (None) /hpf Urine HCG, Qual (Not Detectd) 11/03/18 Range/Units 16:40 WBC (3.8-10.6) k/uL RBC (3.80-5.40) m/uL Hgb (11.4-16.0) gm/dL Hct (34.0-46.0) % MCV (80.0-100.0) fL MCH (25.0-35.0) pg MCHC (31.0-37.0) g/dL RDW (11.5-15.5) % Plt Count (150-450) k/uL Neutrophils % % Lymphocytes % % Monocytes % % Eosinophils % % Basophils % % Neutrophils # (1.3-7.7) k/uL Lymphocytes # (1.0-4.8) k/uL Monocytes # (0-1.0) k/uL Eosinophils # (0-0.7) k/uL Basophils # (0-0.2) k/uL Sodium (137-145) mmol/L Potassium (3.5-5.1) mmol/L Chloride (98-107) mmol/L Carbon Dioxide (22-30) mmol/L Anion Gap mmol/L BUN (7-17) mg/dL Creatinine (0.52-1.04) mg/dL Est GFR (CKD-EPI)AfAm (>60 ml/min/1.73 sqM) Est GFR (CKD-EPI)NonAf (>60 ml/min/1.73 sqM) Glucose (74-99) mg/dL Calcium (8.4-10.2) mg/dL Total Bilirubin (0.2-1.3) mg/dL AST (14-36) U/L ALT (9-52) U/L Alkaline Phosphatase (38-126) U/L Total Protein (6.3-8.2) g/dL Albumin (3.5-5.0) g/dL Urine Color Urine Appearance (Clear) Urine pH (5.0-8.0) Ur Specific [place] (1.001-1.035) Urine Protein (Negative) Urine Glucose (UA) (Negative) Urine Ketones (Negative) Urine Blood (Negative) Urine Nitrite (Negative) Urine Bilirubin (Negative) Urine Urobilinogen (<2.0) mg/dL Ur Leukocyte Esterase (Negative) Urine WBC (0-5) /hpf Ur Squamous Epith Cells (0-4) /hpf Urine Bacteria (None) /hpf Urine Mucus (None) /hpf Urine HCG, Qual Not Detected (Not Detectd) Disposition Clinical Impression: Abdominal muscle strain Disposition: HOME SELF-CARE Condition: Good Instructions: Muscle Strain (DC) Additional Instructions: Patient to adhere to previously discussed treatment plan and will take medication(s) as directed. Patient to follow up with PCP in 1-2 days. Patient to return to ED if symptoms do not improve. Prescriptions: Ibuprofen [Motrin] 600 mg PO Q6HR PRN #40 day PRN Reason: Pain Is patient prescribed a controlled substance at d/c from ED?: No Referrals: Demetrio Martin MD [Primary Care Provider] - 1-2 days Time of Disposition: 18:24
--- NOTE | 2018-11-03 17:39 | CT ---
EXAMINATION TYPE: CT abdomen pelvis w con DATE OF EXAM: 11/03/2018 COMPARISON: None HISTORY: Pain felt in mid abdomen radiating to LT side. Pt hurt lifting at work CT DLP: 1558.1 mGycm Automated exposure control for dose reduction was used. TECHNIQUE: Helical acquisition of images was performed from the lung bases through the pelvis. CONTRAST: Performed without Oral Contrast and with IV Contrast, patient injected with 100 mL of Isovue 370. FINDINGS: Lung bases are clear. There is no pleural effusion. There is no pericardial effusion. Heart size is n ormal. There is fatty infiltration of the liver. Bile ducts are not dilated. Gallbladder is contracted. Sple en appears normal. There is no pancreatic mass. There is no adrenal mass. Kidneys show satisfactory contrast opacification. There is no hydronephrosi s. Ureters are not dilated. There is no retroperitoneal adenopathy. Bladder distends smoothly. There is no inguinal hernia. There are numerous cysts on both ovaries that measure up to 3.4 cm. Uterus is anteverted. There is no free fluid in the pelvis. There is no mesenteric edema or adenopathy. There is no evidence of bowel obstruction. The appendix a ppears normal. There are a few diverticula in the sigmoid colon. Lumbar spine is intact. I see no bon y destructive process. There is no compression fracture. The bony pelvis is intact. IMPRESSION: NO RENAL STONE OR OBSTRUCTION. NORMAL APPENDIX. MINIMAL SIGMOID DIVERTICULOSIS. NUMEROUS BILATERAL OVARIAN CYSTS.
== END 2018-11-03 18:50 | disposition home or self-care (01) ==
LOC: EC 15:33
DX: S39.011A Strain of muscle, fascia and tendon of abdomen, initial encounter (principal); N83.201 Unspecified ovarian cyst, right side; N83.202 Unspecified ovarian cyst, left side; F31.9 Bipolar disorder, unspecified; F41.9 Anxiety disorder, unspecified; Z87.891 Personal history of nicotine dependence; Z79.899 Other long term (current) drug therapy; Z86.14 Personal history of Methicillin resistant Staphylococcus aureus infection; Z87.442 Personal history of urinary calculi; Z98.890 Other specified postprocedural states; X58.XXXA Exposure to other specified factors, initial encounter; Y93.89 Activity, other specified; Y92.69 Other specified industrial and construction area as the place of occurrence of the external cause; Y99.0 Civilian activity done for income or pay
CPT/HCPCS: 36415; 80053; 85025; 81001; 81025; 74177; 99284; 96360; 96361; 96372; J1885; Q9967

== ENCOUNTER 2019-02-17 15:35 | Emergency (ER) | payer OTHER ==
[2019-02-17 15:46] VITALS: RESP 18; TEMP 98.3
[2019-02-17] MEDS ORDERED: KETOROLAC 30 MG/ML 1 ML VIAL IM STA (16:08)
--- NOTE | 2019-02-17 16:41 | XR ---
EXAMINATION TYPE: XR lumbar spine 2 or 3V DATE OF EXAM: 02/17/2019 COMPARISON: NONE HISTORY: Back pain TECHNIQUE: 3 views FINDINGS: The lumbar vertebra have normal alignment. There is anterior spurring at L2-3. There is ant erior spurring also at T12-L1. There is no compression fracture. Posterior elements are intact. Sacro iliac joints appear normal. IMPRESSION: Spondylotic changes. No fracture seen.
--- NOTE | 2019-02-17 17:14 | ED ---
General Adult HPI - General Chief complaint: Back Pain/Injury Stated complaint: [facility] BACK INJURY Time Seen by Provider: 02/17/19 15:43 Source: patient, RN notes reviewed, old records reviewed Mode of arrival: ambulatory Limitations: no limitations - History of Present Illness Initial comments: 43-year-old female patient with past history of chronic lumbar back pain presents ED with acute exacerbation of chronic lumbar back pain. 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 She began experiencing some left paralumbar back pain. Patient states this feels similar to her chronic lumbar back pain on her right paralumbar region except this time is on her left paralumbar region. Patient describes as a tightness. Patient denies any radiation down to her lower extremities. Patient denies any loss of bowel or bladder control, saddle anesthesia, lower extremity paresthesias, lower extremity weakness. Patient's laboratory without difficulty. Patient denies any other complaints. Pt states that she is not . Systemic: Pt denies fatigue, myalgia, fever/chills, rash. Pt denies weakness, night sweats, weight loss. Neuro: Pt denies headache, visual disturbances, syncope or pre-syncope. HEENT: Pt denies ocular discharge or irritation, otalgia, rhinorrhea, pharyngitis or notable lymphadenopathy. Cardiopulmonary: Pt denies chest pain, SOB, heart palpitations, dyspnea on exertion. Abdominal/GI: Pt denies abdominal pain, n/v/d. : Pt denies dysuria, burning w/ urination, frequency/urgency. Denies new onset urinary or bowel incontinence. MSK: Pt denies loss of strength or function in extremities. Neuro: Pt denies new onset weakness, paresthesias. - Related Data Home Medications Medication Instructions Recorded Confirmed HYDROcodone/APAP 7.5-325MG [[place] 1 tab PO Q8H PRN 01/12/17 11/03/18 7.5-325] QUEtiapine [SEROquel] 50 mg PO HS 11/03/18 11/03/18 Previous Rx's Medication Instructions Recorded Ibuprofen [Motrin] 600 mg PO Q6HR PRN #40 day 11/03/18 Ibuprofen [Motrin] 600 mg PO Q6HR PRN #40 day 02/17/19 predniSONE 50 mg PO DAILY #5 tab 02/17/19 Allergies Allergy/AdvReac Type Severity Reaction Status Date / Time No Known Allergies Allergy Verified 02/17/19 15:46 Review of Systems ROS Statement: Those systems with pertinent positive or pertinent negative responses have been documented in the HPI. ROS Other: All systems not noted in ROS Statement are negative. Past Medical History Past Medical History: Asthma Additional Past Medical History / Comment(s): kidney stones History of Any Multi-Drug Resistant Organisms: MRSA Date of last positivie culture/infection: breast MDRO Source:: 2009 Additional Past Surgical History / Comment(s): kidney stone removed Past Psychological History: Anxiety, Bipolar, Depression Smoking Status: Former smoker Past Alcohol Use History: None Reported Past Drug Use History: None Reported - Past Family History Mother Family Medical History: Diabetes Mellitus, Myocardial Infarction ([place]) Additional Family Medical History / Comment(s): [place] x 4 General Exam - General Exam Comments Initial Comments: Constitutional: NAD, AOX3, Pt has pleasant affect. HEENT: NC/AT, trachea midline, neck supple, no lymphadenopathy. Posterior pharynx non erythematous, without exudates. External ears appear normal, without discharge. Mucous membranes moist. Eyes PERRLA, EOM intact. There is no scleral icterus. No pallor noted. Cardiopulmonary: RRR, no murmurs, rubs or gallops, no JVD noted. Lungs CTAB in anterior and posterior singh. No peripheral edema. Abdominal exam: Abdomen soft and non-distended. Abdomen non-tender to palpation in all 4 quadrants. Bowel sounds active in LLQ. No hepatosplenomegaly. No ecchymosis Neuro: CN II-XII grossly intact. No nuchal rigidity. MSK: 5 out of 5 strength psoas and quadriceps muscles. Heel to toe walking intact. No midline tenderness cervical thoracic lumbar spine. Mild left paralumbar tenderness. 2/4 reflexes patellar and achillies bilaterally. No posterior calf tenderness bilaterally, homans sign negative bilaterally. Posterior tibialis and radial pulse +2 bilaterally. Sensation intact in upper and lower extremities. Full active ROM in upper and lower extremities, 5/5 stregnth. Limitations: no limitations Course Vital Signs 02/17/19 15:41 Temperature 98.3 F Pulse Rate 73 Respiratory 18 Rate Blood Pressure 151/67 O2 Sat by Pulse 95 Oximetry Medical Decision Making - Medical Decision Making 43-year-old female patient with past history of chronic lumbar back pain presents ED with acute exacerbation of chronic lumbar back pain. 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 She began experiencing some left paralumbar back pain. Patient states this feels similar to her chronic lumbar back pain on her right paralumbar region except this time is on her left paralumbar region. Patient describes as a tightness. Patient denies any radiation down to her lower extremities. Patient denies any loss of bowel or bladder control, saddle anesthesia, lower extremity paresthesias, lower extremity weakness. Patient's laboratory without difficulty. Patient denies any other complaints. Pt states that she is not . Patient vital signs stable, afebrile. Physical exam displayed: 5 out of 5 strength psoas and quadriceps muscles. Heel to toe walking intact. No midline tenderness cervical thoracic lumbar spine. Mild left paralumbar tenderness. 2/4 reflexes patellar and achillies bilaterally. Plain film of lumbar spine displayed mild anterior spurring at L2-L3. Agent improved with administration of Toradol. Patient discharged with 5 days of prednisone and ibuprofen as needed. Patient return here if she worsens in any way. Patient will follow-up with primary care provider in 1-2 days. Case discussed with Dr. Gutierrez. Disposition Clinical Impression: Lumbar back sprain Disposition: HOME SELF-CARE Condition: Stable Instructions (If sedation given, give patient instructions): Acute Low Back Pain (ED), Chronic Back Pain (ED) Additional Instructions: Patient to adhere to previously discussed treatment plan and will take medication(s) as directed. Patient to follow up with PCP in 1-2 days. Patient to return to ED if symptoms do not improve. Please take prednisone for 5 days. Please use ibuprofen as needed for pain. Please follow-up with primary care provider in 1-2 days. Please return to ER if condition worsens in anyway. Prescriptions: Ibuprofen [Motrin] 600 mg PO Q6HR PRN #40 day PRN Reason: Pain predniSONE 50 mg PO DAILY #5 tab Is patient prescribed a controlled substance at d/c from ED?: No Referrals: Demetrio Martin MD [Primary Care Provider] - 1-2 days
[2019-02-17 17:23] VITALS: BP 139/67; PULSE 70
== END 2019-02-17 17:24 | disposition home or self-care (01) ==
LOC: EC 15:35
DX: S33.5XXA Sprain of ligaments of lumbar spine, initial encounter (principal); F31.9 Bipolar disorder, unspecified; F41.9 Anxiety disorder, unspecified; Z86.14 Personal history of Methicillin resistant Staphylococcus aureus infection; Z87.891 Personal history of nicotine dependence; Z79.899 Other long term (current) drug therapy; X50.0XXA Overexertion from strenuous movement or load, initial encounter; Y92.239 Unspecified place in hospital as the place of occurrence of the external cause; Y99.0 Civilian activity done for income or pay
CPT/HCPCS: 72100; 99284; 96372; J1885

== ENCOUNTER 2020-08-09 20:53 | Emergency (ER) | payer OTHER ==
[2020-08-09 21:07] VITALS: BP 137/78; PULSE 84; RESP 16; TEMP 98.2
[2020-08-09] MEDS ORDERED: ACETAMINOPHEN TAB 325 MG TAB PO STA (21:14)
--- NOTE | 2020-08-09 21:20 | ED ---
Upper Extremity HPI - General Chief Complaint: Extremity Injury, Upper Stated Complaint: Left hand injury - [facility] Time Seen by Provider: 08/09/20 21:10 Source: patient Mode of arrival: ambulatory Limitations: no limitations - History of Present Illness Initial Comments: 44-year-old female patient presents to the emergency department today for evaluation of injury to the left hand. 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 Patient states she did hear snapping sound. States she's been having pain since the injury and has developed swelling. Injury occurred around 3:30 this afternoon, she did take ibuprofen around 4:30. She denies numbness or tingling to the thumb. States she is able to move it does increase her pain. Patient states she has had injury to this thumb in the past. Patient denies any headache, neck pain, back pain, chest pain, shortness of breath, dizziness, weakness, abdominal pain, nausea, vomiting, or difficulties with bowel movements or urination. - Related Data Home Medications Medication Instructions Recorded Confirmed HYDROcodone/APAP 7.5-325MG [[place] 1 tab PO Q8H PRN 01/12/17 11/03/18 7.5-325] QUEtiapine [SEROquel] 50 mg PO HS 11/03/18 11/03/18 Previous Rx's Medication Instructions Recorded Ibuprofen [Motrin] 600 mg PO Q6HR PRN #40 day 11/03/18 Ibuprofen [Motrin] 600 mg PO Q6HR PRN #40 day 02/17/19 predniSONE 50 mg PO DAILY #5 tab 02/17/19 Cyclobenzaprine [Flexeril] 5 mg PO BID #10 tablet 12/29/19 Allergies Allergy/AdvReac Type Severity Reaction Status Date / Time No Known Allergies Allergy Verified 08/09/20 21:07 Review of Systems ROS Statement: Those systems with pertinent positive or pertinent negative responses have been documented in the HPI. ROS Other: All systems not noted in ROS Statement are negative. Past Medical History Past Medical History: Asthma Additional Past Medical History / Comment(s): kidney stones History of Any Multi-Drug Resistant Organisms: MRSA Date of last positivie culture/infection: breast MDRO Source:: 2009 Additional Past Surgical History / Comment(s): kidney stone removed Past Psychological History: Anxiety, Bipolar, Depression Smoking Status: Former smoker Past Alcohol Use History: None Reported Past Drug Use History: None Reported - Past Family History Mother Family Medical History: Diabetes Mellitus, Myocardial Infarction ([place]) Additional Family Medical History / Comment(s): [place] x 4 General Exam Limitations: no limitations General appearance: alert, in no apparent distress, other (This is a well- developed, well-nourished adult female patient in no acute distress. Vital signs upon presentation are temperature 98.2F, pulse 84, respirations 16, blood pressure 137/78, pulse ox 100% on room air.) Respiratory exam: Present: normal lung sounds bilaterally. Absent: respiratory distress, wheezes, rales, rhonchi, stridor Cardiovascular Exam: Present: regular rate, normal rhythm, normal heart sounds. Absent: systolic murmur, diastolic murmur, rubs, gallop, clicks Extremities exam: Present: full ROM, normal capillary refill, other (There is soft tissue swelling noted over the thenar eminence on the left hand, skin is otherwise pink, warm, dry. Cap refills less than 3 seconds. Patient exhibits full range of motion of the thumb. Radial pulses 2+ and equal bilaterally.). Absent: normal inspection, tenderness, pedal edema, joint swelling, calf tenderness Neurological exam: Present: alert, oriented X3, CN II-XII intact Psychiatric exam: Present: normal affect, normal mood Skin exam: Present: warm, dry, intact, normal color. Absent: rash Course Vital Signs 08/09/20 21:04 Temperature 98.2 F Pulse Rate 84 Respiratory 16 Rate Blood Pressure 137/78 O2 Sat by Pulse 100 Oximetry Medical Decision Making - Medical Decision Making 44-year-old female patient presented to the emergency department today for eval uation of a left thumb injury. She sustained this injury while at work. Physical examination did reveal soft tissue swelling over the thenar eminence. Full range of motion was intact. Neurovascular status was intact. X-rays were obtained and showed no acute osseous abnormality. We did discuss sprain of the thumb as a cause for her pain. She was placed in an Trent wrap. She is instructed take Tylenol and Motrin for pain control. She states instructed to follow-up with employee health services for further evaluation as soon as possible. She is given work restriction for the hand. Return parameters discussed in detail. She verbalizes understanding and agrees with this plan. - Radiology Data Radiology results: report reviewed, image reviewed 3 views of the left hand were obtained. Report was reviewed in its entirety. Impression by Dr. Newell shows negative left hand exam. No fracture seen. No evidence of a thumb fracture. Disposition Clinical Impression: Left thumb sprain Disposition: HOME SELF-CARE Condition: Good Instructions (If sedation given, give patient instructions): Finger Sprain (ED) Additional Instructions: Take medications as directed. Use Trent wrap for comfort and support. Limit use of hand. Follow-up with the primary care physician for recheck in 1-2 days. Return to the emergency department immediately for any new, worsening, or concerning symptoms. Is patient prescribed a controlled substance at d/c from ED?: No Referrals: Demetrio Martin MD [Primary Care Provider] - 1-2 days Time of Disposition: 22:11
--- NOTE | 2020-08-09 22:00 | XR ---
EXAMINATION TYPE: XR hand complete LT DATE OF EXAM: 08/09/2020 COMPARISON: NONE HISTORY: Thumb pain TECHNIQUE: 3 views FINDINGS: I see no fracture nor dislocation. Joint spaces appear normal. There are no erosions. IMPRESSION: Negative left hand exam. No fracture seen. No evidence of a thumb fracture.
== END 2020-08-09 22:41 | disposition home or self-care (01) ==
LOC: EC 20:53
DX: S63.602A Unspecified sprain of left thumb, initial encounter (principal); F31.9 Bipolar disorder, unspecified; Z79.899 Other long term (current) drug therapy; Z87.891 Personal history of nicotine dependence; W50.2XXA Accidental twist by another person, initial encounter; Y92.69 Other specified industrial and construction area as the place of occurrence of the external cause; Y99.0 Civilian activity done for income or pay
CPT/HCPCS: 99283

== ENCOUNTER → 2020-08-12 | Outpatient (CLI) | payer OTHER ==
--- NOTE | 2020-08-12 11:25 | XR ---
Left wrist HISTORY: Trauma and pain 4 views of the left wrist correlated to prior left hand 08/09/2020 Bone mineralization, joint spaces and alignment are maintained. IMPRESSION: No acute fracture or dislocation.
== END | disposition home or self-care (01) ==
LOC: RADXRMAIN 11:00
PROVIDERS: ATTEND Emergency Medicine
DX: S63.502A Unspecified sprain of left wrist, initial encounter (principal); S63.602A Unspecified sprain of left thumb, initial encounter

== ENCOUNTER → 2020-08-18 | Outpatient (CLI) | payer OTHER ==
--- NOTE | 2020-08-18 10:44 | XR ---
EXAMINATION TYPE: XR hand complete LT, XR wrist complete LT DATE OF EXAM: 08/18/2020 CLINICAL HISTORY: pain TECHNIQUE: Frontal, lateral and oblique images of the left hand are obtained. COMPARISON: None. FINDINGS: There is no acute fracture/dislocation evident. The joint spaces appear within normal limi ts. The overlying soft tissue appears unremarkable. IMPRESSION: There is no acute fracture or dislocation. ICD 10 NO FRACTURE, INITIAL EVALUATION EXAMINATION TYPE: XR hand complete LT, XR wrist complete LT DATE OF EXAM: 08/18/2020 CLINICAL HISTORY: pain TECHNIQUE: Frontal, lateral and oblique images of the left wrist are obtained. COMPARISON: None. FINDINGS: There is no acute fracture/dislocation evident. The joint spaces appear within normal kumar its. The overlying soft tissue appears unremarkable. IMPRESSION: There is no acute fracture or dislocation seen. ICD 10 NO FRACTURE, INITIAL EVALUATION
== END | disposition home or self-care (01) ==
LOC: RADXRMAIN 09:56
PROVIDERS: ATTEND Emergency Medicine
DX: S63.502D Unspecified sprain of left wrist, subsequent encounter (principal); S63.602D Unspecified sprain of left thumb, subsequent encounter; M25.532 Pain in left wrist; M79.642 Pain in left hand

== ENCOUNTER → 2023-01-23 | Outpatient (CLI) | payer BC ==
--- NOTE | 2023-01-24 09:00 | XR ---
EXAM TYPE: LUMBAR SPINE X RAY SERIES COMPARISON: 02/18/2000 HISTORY: Pain TECHNIQUE: 3 views are submitted. FINDINGS: Alignment is anatomic. The pedicles are intact. The transverse processes are intact. There is no h ypertrophic and degenerative changes noted. There is facet arthropathy. No spondylolisthesis or spond ylolysis. SI joints patent IMPRESSION: 1. Multilevel [id number] degenerative disc disease most marked at the thoracolumbar junction si milar to prior exam.
== END | disposition home or self-care (01) ==
LOC: RADXRMAIN 16:57
PROVIDERS: ATTEND Physical Medicine & Rehabilitation
DX: M51.35 Other intervertebral disc degeneration, thoracolumbar region (principal)
CPT/HCPCS: 72110